=== PATIENT | male | born 1985 | race Caucasian/White ===

== ENCOUNTER 2017-11-16 07:51 | Emergency (ER) | payer OTHER ==
[2017-11-16 08:00] VITALS: BP 145/90
--- NOTE | 2017-11-16 08:43 | ED ---
Sarkis Weiner Stephanie, scribed for Isra Tolliver MD on 11/16/17 at 0838 . Lower Extremity - HPI Summary HPI Summary: The pt is a 32 y/o M presenting to the ED with c/o pain in L buttock that began after lifting heavy objects on 11/14/17. The pt experienced the same pain on after moving heavy objects but the pain resolved on its own. - History of Current Complaint Chief Complaint: EDGeneral Stated Complaint: RECTAL PAIN Hx Obtained From: Patient Mechanism Of Injury: Other - post lifting/moving heavy objects Onset of Pain: Post Accident Onset/Duration: Still Present Severity Currently: Moderate Pain Intensity: 8 Pain Scale Used: 0-10 Numeric Location: Is Discrete @ - L buttock Aggravating Factor(s): Movement, Weight Bearing Alleviating Factor(s): Rest PMH/Surg Hx/FS Hx/Imm Hx - Immunization History Date of Tetanus Vaccine: UTD Date of Influenza Vaccine: NO Infectious Disease History: No Infectious Disease History: Denies: Traveled Outside the [place] in Last 30 Days - Family History Known Family History: Positive: Unknown - Pt denies family history when asked - Social History Occupation: Employed Part-time Alcohol Use: Occasionally Substance Use Type: Reports: None Smoking Status (MU): Never Smoked Tobacco Review of Systems Negative: Fever Positive: Other - Negative: back pain All Other Systems Reviewed And Are Negative: Yes Physical Exam - Summary Physical Exam Summary: Appearance: The patient is well-nourished in no acute distress and in no acute pain. Skin: The skin is warm and dry and skin color reflects adequate perfusion. HEENT: The head is normocephalic and atraumatic. The pupils are equal and reactive. The conjunctivae are clear and without drainage. Nares are patent and without drainage. Mouth reveals moist mucous membranes and the throat is without erythema and exudate. The external ears are intact. The ear canals are patent and without drainage. The tympanic membranes are intact. Neck: the neck is supple with full range of motion and non-tender. There are no carotid bruits. There is no neck vein distension. Respiratory: Chest is non-tender. Lungs are clear to auscultation and breath sounds are symmetrical and equal. Cardiovascular: Heart is regular rate and rhythm. There is no murmur or rub auscultated. There is no peripheral edema and pulses are symmetrical and equal. Abdomen: The abdomen is soft and non-tender. There are normal bowel sounds heard in all four quadrants and there is no organomegaly palpated. Musculoskeletal: There is no back tenderness noted. There is good capillary refill. There is no peripheral edema or calf tenderness elicited. There is mild tenderness in L buttock. Tender to plantar flexion of L foot. Neurological: Patient is alert and oriented to person, place and time. The patient has symmetrical motor strength in all four extremities. Cranial nerves are grossly intact. Deep tendon reflexes are symmetrical and equal in all four extremities. Psychiatric: The patient has an appropriate affect and does not exhibit any anxiety or depression. Triage Information Reviewed: Yes Vital Signs On Initial Exam: Initial Vitals Temp Pulse Resp BP Pulse Ox 98.0 F 94 18 145/90 97 11/16/17 07:57 11/16/17 07:57 11/16/17 07:57 11/16/17 07:57 11/16/17 07:57 Vital Signs Reviewed: Yes - Junior Coma Scale Coma Scale Total: 15 Diagnostics - Vital Signs Vital Signs Temp Pulse Resp BP Pulse Ox 11/16/17 07:57 98.0 F 94 18 145/90 97 - Laboratory Lab Statement: Any lab studies that have been ordered have been reviewed, and results considered in the medical decision making process. Lower Extremity Course/Dx - Course Course Of Treatment: ED physician recommends Ibuprofen and only permits light lifting at work. Follow up with your PCP if symptoms are not improved in 1 week. Assessment/Plan: Mr. Zaldivar pulled a muscle in his left buttock area lifting at work. I will recommend relative rest and anti-inflammatories. - Diagnoses Provider Diagnoses: Muscle strain of gluteal region Discharge - Discharge Plan Condition: Stable Disposition: HOME Patient Education Materials: Muscle Strain (ED) Forms: *Work Release Referrals: Emerald MARISCAL,Basil Baires [Primary Care Provider] - Additional Instructions: Use ibuprofen 600 mgs every 6 hours for the next few days. The documentation as recorded by the Sarkis espana Stephanie accurately reflects the service I personally performed and the decisions made by me, Isra Tolliver MD.
== END 2017-11-16 08:44 | disposition home or self-care (01) ==
LOC: ED 07:51
DX: S76.912A Strain of unspecified muscles, fascia and tendons at thigh level, left thigh, initial encounter (principal); X50.0XXA Overexertion from strenuous movement or load, initial encounter; Y93.9 Activity, unspecified; Y92.9 Unspecified place or not applicable; Y99.0 Civilian activity done for income or pay
CPT/HCPCS: 99281